=== PATIENT | female | born 2000 | race Two or more races ===

== ENCOUNTER 2018-02-13 23:34 | Emergency (ER) | payer SELFPAY ==
[2018-02-14 00:40] VITALS: BP 112/74
--- NOTE | 2018-02-14 00:50 | ER Document Report ---
ED ENT - General Chief Complaint: Fever Stated Complaint: FEVER,SORE THROAT Time Seen by Provider: 02/14/18 00:12 Mode of Arrival: Ambulatory Information source: Patient Notes: Patient is a 17-year-old female comes emergency room complaining of a sore throat. Patient states she has a long history of strep pharyngitis that if not treated promptly leads her into or she is more prone to strep bacteremia. She states that she started 2 days ago with a little bit of a sore throat and it is personally gotten worse over the course of the last 48 hours. She says yesterday her back of her throat were extremely white. Patient still has her tonsils. She also has a history of EDS and Etienne she denies smoking last menstrual period was February 02 she currently is not on any control but s he is currently on metronidazole for bacterial vaginosis. TRAVEL OUTSIDE OF THE [place] IN LAST 30 DAYS: No - HPI Patient complains to provider of: Throat problem Onset: Other - 2 days Onset/Duration: Gradual, Worse Quality of pain: Achy, Sharp Severity: Moderate Pain Level: 3 Location of pain: Throat Associated symptoms: Chills, Hoarse voice, Sore throat, Swollen glands Similar symptoms previously: Yes Recently seen / treated by doctor: No - Related Data Allergies/Adverse Reactions: ciprofloxacin [From Cipro] Allergy (Verified 02/13/18 23:53) Past Medical History - General Information source: Patient - Social History Smoking Status: Never Smoker Cigarette use (# per day): No Chew tobacco use (# tins/day): No Smoking Education Provided: No Frequency of alcohol use: None Drug Abuse: None Family History: Reviewed & Not Pertinent Patient has suicidal ideation: No Patient has homicidal ideation: No Renal/ Medical History: Denies: Hx Peritoneal Dialysis Review of Systems - Review of Systems Constitutional: See HPI, Chills, Fever, Malaise EENT: Throat pain Cardiovascular: No symptoms reported Respiratory: No symptoms reported Gastrointestinal: No symptoms reported Genitourinary: No symptoms reported Female Genitourinary: No symptoms reported Musculoskeletal: No symptoms reported Skin: No symptoms reported Hematologic/Lymphatic: No symptoms reported Neurological/Psychological: No symptoms reported -: Yes All other systems reviewed and negative Physical Exam - Vital signs Vitals: Temp Pulse Resp BP Pulse Ox 98 F 74 19 112/74 100 02/14/18 00:40 12/19/18 00:40 02/14/18 00:40 02/14/18 00:40 02/14/18 00:40 Interpretation: Normal - Notes Notes: PHYSICAL EXAMINATION: GENERAL: Patient is a well-nourished well-developed 17-year-old female who is in no apparent distress on physical examination this morning. HEAD: Atraumatic, normocephalic. EYES: Pupils equal round and reactive to light, extraocular movements intact, conjunctiva are normal. ENT: examination of the head and upper airway showed nasal mucosa to be mildly or medicine edematous with no rhinorrhea noted. There is no pain or discomfort on palpation of the frontal or maxillary sinuses. Bilateral TMs are normal in appearance there is no erythema landmarks are bright and shiny and no fluid or air-fluid levels noted. There is no retraction or bulging. Further examination of the oral cavity shows patient has bilateral tonsils that are very small and are took the way and they are very erythematous with white exudate noted on them. And the exudate is more of a creamy type of a presentation. The posterior pharynx is also covered in this type of exudate. There is no encroachment upon the uvula is midline with erythema and this same exudate noted. Patient does not not have any difficulty swallowing and handling her own secretions. NECK: Normal range of motion, supple with bilateral anterior cervical lymphadenopathy noted on palpation. LUNGS: Breath sounds clear to auscultation bilaterally and equal. No wheezes rales or rhonchi. HEART: Regular rate and rhythm without murmurs ABDOMEN: Soft, nontender, nondistended abdomen. No guarding, no rebound. No masses appreciated. Female : deferred Musculoskeletal: Normal range of motion, no pitting or edema. No cyanosis. NEUROLOGICAL: Normal speech, normal gait. Normal sensory, motor exams PSYCH: Normal mood, normal affect. SKIN: Warm, Dry, normal turgor, no rashes or lesions noted. Course - Re-evaluation Re-evalutation: 02/14/18 01:19 Patient's rapid strep came back negative for strep. Her dilemma is that this patient has a very sensitive exposure time to getting strep pharyngitis and that turning into bacteremia. This is happened to her on 2 occasions and her mother actually contacted us and informed us that she needed a high dose of amoxicillin for it to be corrected. I understand that the [facility] is not recommending nor is a CDC treatment of a strep presentation unless we have a positive rapid strep. Given this patient's history I am going to go on the side of caution on this 1 because patient is very fragile and she can tip to the charts and goes out very quickly. I have explained this to the patient and told her this is my reasoning behind this and she is agreed with that. She is also on metronidazole currently for BV and we are placing her on 875 twice daily of amoxicillin somewhat I will put her on Diflucan 1 tab to start with and 1 tab on day 7. Since her tonsils are not engorged nor are they causing no encroachment upon the uvula we will not use any steroids at this time. - Vital Signs Vital signs: Temp Pulse Resp BP Pulse Ox 98 F 74 19 112/74 100 02/14/18 00:40 02/14/18 00:40 02/14/18 00:40 02/14/18 00:40 02/14/18 00:40 Discharge - Discharge Clinical Impression: Pharyngitis Qualifiers: Pharyngitis/tonsillitis etiology: unspecified etiology Qualified Code(s): J02.9 - Acute pharyngitis, unspecified Disposition: HOME, SELF-CARE Instructions: Acetaminophen, Viral Syndrome ([facility]), Tonsillitis ([facility]) Additional Instructions: As we discussed your culture was negative but given your severe history of strep bacteremia in your fragile nature of getting it I am going to go ahead and treat you with the amoxicillin. Since you are already metronidazole for the BV and since we will be adding a high dose of amoxicillin going to place you on Diflucan 1 pill on day 1 and 1 pill on day 7. Use warm salt water gargles 3-4 times a day. Tylenol alternate with Motrin to keep the fever down. Should you have a spiking fever any concerns that you may be leaning towards the bacteremia come back for reevaluation please Prescriptions: Amoxicillin Trihydrate [Amoxil 875 mg Tablet] 1 tab PO BID #20 tablet Fluconazole [Diflucan] 150 mg PO ASDIR #2 tablet Referrals: [facility] [NO LOCAL MD] - Follow up as needed
== END 2018-02-14 01:52 | disposition home or self-care (01) ==
LOC: ER 23:34
DX: R50.9 Fever, unspecified (principal); J02.9 Acute pharyngitis, unspecified; Z88.3 Allergy status to other anti-infective agents
CPT/HCPCS: 87070; 87880; 99283

== ENCOUNTER 2018-03-31 12:09 | Emergency (ER) | payer SELFPAY ==
[2018-03-31] MEDS ORDERED: PENICILLIN G BENZATHINE 1.2 MILLION UNIT/2 ML DISP.SYRIN IM ONE (13:12)
[2018-03-31] MEDS ORDERED: LIDOCAINE 2% VISCOUS SOLN 20 ML UDCUP PO ONE (13:12)
[2018-03-31] MEDS ORDERED: IBUPROFEN 800 MG TABLET PO ONE (13:12)
--- NOTE | 2018-03-31 13:15 | ER Document Report ---
HPI - HPI Patient complains to provider of: Sore throat Time Seen by Provider: 03/31/18 12:58 Onset: Yesterday Onset/Duration: Gradual Quality of pain: Achy Pain Level: 4 Context: Patient presents complaining of sore throat fever and body aches that started yesterday. Associated Symptoms: Fever, Sore throat Exacerbated by: Denies Relieved by: Denies Similar symptoms previously: Yes Recently seen / treated by doctor: No - ROS ROS below otherwise negative: Yes Systems Reviewed and Negative: Yes All other systems reviewed and negative - CONSTITUTIONAL Constitutional: REPORTS: Fever, Chills - EENT EENT: REPORTS: Sore Throat - GASTROINTESTINAL Gastrointestinal: DENIES: Patient vomiting - REPRODUCTIVE Reproductive: DENIES: : - DERM Skin Color: Normal Skin Problems: None Past Medical History - General Information source: Patient - Social History Smoking Status: Never Smoker Frequency of alcohol use: None Drug Abuse: None Occupation: food service coordinator Family History: Reviewed & Not Pertinent - Medical History Medical History: Other - karly Gates - Past Medical History Cardiac Medical History: Reports: Other - POTS Renal/ Medical History: Denies: Hx Peritoneal Dialysis Past Surgical History: Reports: Hx Adenoidectomy, Hx Myringotomy Vertical Provider Document - CONSTITUTIONAL Agree With Documented VS: Yes Exam Limitations: No Limitations General Appearance: WD/WN, No Apparent Distress - INFECTION CONTROL TRAVEL OUTSIDE OF THE [place] IN LAST 30 DAYS: No - HEENT HEENT: Atraumatic, Normocephalic, Pharyngeal Exudate, Pharyngeal Tenderness, Pharyngeal Erythema. negative: Tympanic Membrane Red, Tympanic Membrane Bulging - NECK Neck: Lymphadenopathy-Left, Lymphadenopathy-Right - RESPIRATORY Respiratory: Breath Sounds Normal, No Respiratory Distress - CARDIOVASCULAR Cardiovascular: Regular Rhythm, No Murmur, Tachycardia - MUSCULOSKELETAL/EXTREMETIES Musculoskeletal/Extremeties: MAEW - NEURO Level of Consciousness: Awake, Alert, Appropriate Motor/Sensory: No Motor Deficit - DERM Integumentary: Warm, Dry Course - Re-evaluation Re-evalutation: 03/31/18 13:13 Patient with erythema and exudate to posterior pharynx worrisome for strep pharyngitis. Will give patient dose of IM Bicillin here today. No concern for peritonsillar abscess. Good return precautions discussed - Vital Signs Vital signs: Temp Pulse Resp BP Pulse Ox 99.8 F 112 H 14 129/75 H 100 03/31/18 12:12 03/31/18 12:12 03/31/18 12:12 03/31/18 12:12 03/31/18 12:12 Discharge - Discharge Clinical Impression: Tonsillitis Condition: Stable Disposition: HOME, SELF-CARE Instructions: Acetaminophen, Antibiotic Shot ([facility]), Use of Oudw-Eir-Enzazpy Ibuprofen ([facility]), Tonsillitis ([facility]) Additional Instructions: Return immediately for any new or worsening symptoms Followup with your primary care provider, call tomorrow to make a followup appointment Increase oral fluids and stay well-hydrated Prescriptions: Naproxen [Naprosyn 250 Nmg Tablet] 1 tab PO BID #14 tablet Forms: Return to Work Referrals: [facility] [Provider Group] - Follow up as needed
[2018-03-31 14:16] VITALS: BP 122/72
== END 2018-03-31 14:12 | disposition home or self-care (01) ==
LOC: ER 12:09
DX: J03.90 Acute tonsillitis, unspecified (principal); R50.9 Fever, unspecified
CPT/HCPCS: 99283; 96372; 87070; 87077; J3490; J0561